=== PATIENT | male | born 1955 | race African-American/Black ===

== ENCOUNTER 2016-09-18 06:17 | Emergency (ER) | payer SELFPAY ==
[~2016-09-18] VITALS: Ht 182.9 cm; Wt 75.6 kg
[2016-09-18 06:27] VITALS: BP 134/83
[2016-09-18] MEDS ORDERED: PLEASE ENTER ALLERGIES MC SCH ×2 (08:00)
[2016-09-18] MEDS ORDERED: KETOROLAC 30 MG/1 ML IM ONE (08:00)
[2016-09-18] MEDS ORDERED: ONDANSETRON ODT 4 MG PO ONE (08:00)
[2016-09-18] MEDS ORDERED: DIAZEPAM 5 MG TABLET PO ONE (08:00)
[2016-09-18] MEDS ORDERED: KETOROLAC 30 MG/1 ML ONE (08:17)
[2016-09-18] MEDS ORDERED: ONDANSETRON ODT 4 MG ONE (08:17)
[2016-09-18] MEDS ORDERED: DIAZEPAM 5 MG TABLET ONE (08:17)
== END 2016-09-18 09:33 | disposition home or self-care (01) ==
LOC: EDBD 06:17 → ED 09:27
DX: S16.1XXA Strain of muscle, fascia and tendon at neck level, initial encounter (principal); R51 Headache; M54.5 Low back pain; V89.2XXA Person injured in unspecified motor-vehicle accident, traffic, initial encounter; Y93.89 Activity, other specified; Y92.488 Other paved roadways as the place of occurrence of the external cause; Y99.8 Other external cause status
CPT/HCPCS: 72050; 96372; 99284; J1885; Q0162

== ENCOUNTER 2018-09-20 14:41 | Inpatient (IN) | payer MEDICAID, OTHER ==
[~2018-09-20] VITALS: Ht 175.3 cm; Wt 70.8 kg
--- NOTE | 2018-09-20 14:45 | NUR ---
PT ARRIVED TO ROOM 2 VIA GURNEY FROM [facility] FOR N/V/D FOR APPROX. 1 WEEK. FRIENDS/FAMILY ATTEMPTED TO TREAT WITH HOME REMEDIES. PT AAO X 4, REQUESTING WATER. PT'S MUCOUS MEMBRANES VERY DRY, AWARE. VSS, HR TACHY, NEW ORDERS RECEIVED.
[2018-09-20] MEDS ORDERED: SODIUM CHLORIDE FLUSH 10ML SYR IVF ONE (15:00)
[2018-09-20] MEDS ORDERED: SODIUM CHLORIDE 0.9% 1,000ML IVBOLUS ONE (15:00)
--- NOTE | 2018-09-20 15:02 | NUR ---
IV BOLUS INFUSING, BC X 2 DRAWN.
[2018-09-20 15:23] LABS: MEAN CORPUSCULAR HEMOGLOBIN 28.7 pg (27.5-34.5); MEAN CORPUSCULAR HGB CONC 32.4 g/dL (33.2-36.2); MEAN CORPUSCULAR VOLUME 88.3 fL (81-97); MEAN PLATELET VOLUME 8.3 fL (7.4-10.4); PLATELET COUNT 479 x10^3/uL (130-400); RED BLOOD COUNT 4.75 x10^6/uL (4.38-5.82); RED CELL DISTRIBUTION WIDTH 15.4 % (9.4-14.8)
[2018-09-20 15:34] LABS: ALANINE AMINOTRANSFERASE 66 U/L (12-78); ALBUMIN 1.6 g/dL (3.4-5.0); ANION GAP 11 mmol/L (5-15); CALCIUM 8.8 mg/dL (8.5-10.1); CHLORIDE 98 mmol/L (98-107); CREATININE 3.04 mg/dL (0.7-1.3)
[2018-09-20 15:47] LABS: ALKALINE PHOSPHATASE 189 U/L (45-117); BILIRUBIN,TOTAL 4.5 mg/dL (0.2-1.0); CREATINE KINASE, TOTAL 87 U/L (39-308); TOTAL PROTEIN 7.9 g/dL (6.4-8.2)
[2018-09-20 16:00] LABS: MD YES
[2018-09-20 16:02] LABS: BAND#(MANUAL) 1.62 x10^3/uL; BANDS%(MANUAL) 7 % (0-7)
[2018-09-20 16:03] LABS: <PLATELET ESTIMATE> INCREASED; <PLT MORPHOLOGY> NORMAL PLT MORPH; <RBC MORPHOLOGY> NORMAL; LYMPH#(MANUAL) 0.23 x10^3/uL (1-3.4); LYMPHS% (MANUAL) 1 % (22-44); MONOS#(MANUAL) 0.23 x10^3/uL (0.3-2.7); MONOS% (MANUAL) 1 % (2-9); SEGS% (MANUAL) 91 % (42-75)
[2018-09-20 16:04] LABS: PMNS WITH VACUOLES 1+; TOXIC GRAN 1+
[2018-09-20] MEDS ORDERED: SODIUM CHLORIDE 0.9%, 500ML IVBOLUS ONE (16:30)
[2018-09-20] MEDS ORDERED: CEFTRIAXONE PMX 1GM/50ML 50 ML IV ONE (16:30)
[2018-09-20] MEDS ORDERED: AZITHROMYCIN 500 MG in SODIUM CHLORIDE 0.9% 250 ML IV ONE (16:30)
[2018-09-20 16:59] LABS: MICROSCOPIC INDICATED
[2018-09-20] MEDS ORDERED: CEFTRIAXONE PMX 1GM/50ML 50 ML ONE (16:59)
[2018-09-20 17:02] LABS: CULTURE INDICATED? NO
--- NOTE | 2018-09-20 17:11 | NUR ---
NOTIFIED THAT PT MEETS SEPSIS CRITERIA. 2L NS BOLUS COMPLETED. BC X 2 COMPLETED. PT RECEIVING ABX.
[2018-09-20] MEDS ORDERED: OXYcodone IR 5MG TABLET PO PRN (18:00)
[2018-09-20] MEDS ORDERED: ACETAMINOPHEN 325 MG TABLET PO PRN (18:00)
[2018-09-20] MEDS ORDERED: morphine SULFATE 10 MG/ML, 1ML IVPush PRN (18:00)
[2018-09-20] MEDS ORDERED: hydrALAzine 20 MG/ML, 1ML IVPush PRN (18:00)
[2018-09-20] MEDS ORDERED: GABAPENTIN 300 MG CAPSULE PO PRN (18:00)
[2018-09-20] MEDS ORDERED: ONDANSETRON 2MG/ML, 2ML IVPush PRN (18:00)
--- NOTE | 2018-09-20 18:03 | NUR ---
report given to BENITO Baron. pt to transfer to room 410.
[2018-09-20 19:00] VITALS: BP 140/71
[2018-09-20] MEDS: D5%-0.45% NACL 1,000 ML IV SCH (19:46)
[2018-09-20] MEDS: NICOTINE 14MG/24 HR PATCH.TD24 TD SCH (19:47)
[2018-09-20] MEDS: HEPARIN 5,000 UNITS/ML, 1ML SQ SCH (19:47)
[2018-09-20 21:22] LABS: ANION GAP 10 mmol/L (5-15); CALCIUM 7.9 mg/dL (8.5-10.1); CHLORIDE 105 mmol/L (98-107); CREATININE 2.34 mg/dL (0.7-1.3)
[2018-09-21] MEDS ORDERED: LACTATED RINGERS 500 ML IVBOLUS ONE (02:00)
[2018-09-21 02:33] VITALS: BP 121/75
[2018-09-21] MEDS: AMPICILLIN 1 GM in SODIUM CHLORIDE 0.9% 100 ML IV SCH ×3 (02:54→14:24)
[2018-09-21] MEDS: HEPARIN 5,000 UNITS/ML, 1ML SQ SCH ×3 (02:55→19:52)
[2018-09-21] MEDS: D5%-0.45% NACL 1,000 ML IV SCH ×2 (02:56→15:23)
[2018-09-21 06:23] LABS: MEAN CORPUSCULAR HEMOGLOBIN 29.8 pg (27.5-34.5); MEAN CORPUSCULAR HGB CONC 33.3 g/dL (33.2-36.2); MEAN CORPUSCULAR VOLUME 89.3 fL (81-97); MEAN PLATELET VOLUME 8.1 fL (7.4-10.4); PLATELET COUNT 433 x10^3/uL (130-400); RED BLOOD COUNT 4.02 x10^6/uL (4.38-5.82); RED CELL DISTRIBUTION WIDTH 15.4 % (9.4-14.8)
[2018-09-21 06:26] LABS: CALCIUM 7.8 mg/dL (8.5-10.1); CHLORIDE 109 mmol/L (98-107)
[2018-09-21 06:31] LABS: ALANINE AMINOTRANSFERASE 57 U/L (12-78); ALBUMIN 1.2 g/dL (3.4-5.0); ALKALINE PHOSPHATASE 161 U/L (45-117); ANION GAP 9 mmol/L (5-15); BILIRUBIN,TOTAL 2.7 mg/dL (0.2-1.0); CREATININE 1.88 mg/dL (0.7-1.3); TOTAL PROTEIN 6.2 g/dL (6.4-8.2)
[2018-09-21 06:45] LABS: BASOPHILS % (AUTO) 0 % (0-1); EOSINOPHILS % (AUTO) 0 % (1-7); LYMPHOCYTES # (AUTO) 0.42 x10^3/uL (1-3.4); LYMPHOCYTES % (AUTO) 2 % (22-44); MD SCAN; MONOCYTES # (AUTO) 0.07 x10^3/uL (0.2-0.8); MONOCYTES % (AUTO) 0 % (2-9); NEUTROPHILS # (AUTO) 19.39 x10^3/uL (1.8-6.8); NEUTROPHILS % (AUTO) 98 % (42-75)
[2018-09-21 08:19] VITALS: BP 106/54
[2018-09-21 12:49] VITALS: BP 108/65
[2018-09-21] MEDS ORDERED: CEFTAROLINE 600 MG in SODIUM CHLORIDE 0.9% 100 ML IV SCH ×2 (16:00→16:30)
[2018-09-21] MEDS ORDERED: PHARMACY MAY ADJ FOR RENAL FX MC PRN (16:00)
[2018-09-21 16:20] LABS: ANION GAP 9 mmol/L (5-15); CALCIUM 7.9 mg/dL (8.5-10.1); CHLORIDE 109 mmol/L (98-107); CREATININE 1.54 mg/dL (0.7-1.3)
[2018-09-21] MEDS ORDERED: AZITHROMYCIN 500 MG in SODIUM CHLORIDE 0.9% 250 ML IV SCH (17:00)
[2018-09-21] MEDS ORDERED: CEFTRIAXONE PMX 1GM/50ML 50 ML IV SCH (17:00)
[2018-09-21 19:10] VITALS: BP 143/65
[2018-09-21] MEDS: NICOTINE 14MG/24 HR PATCH.TD24 TD SCH (19:51)
[2018-09-22 00:59] VITALS: BP 140/80
[2018-09-22] MEDS: D5%-0.45% NACL 1,000 ML IV SCH (02:12)
[2018-09-22] MEDS: HEPARIN 5,000 UNITS/ML, 1ML SQ SCH ×2 (04:15→17:30)
[2018-09-22] MEDS: CEFTAROLINE 400 MG in SODIUM CHLORIDE 0.9% 100 ML IV SCH ×2 (04:15→17:30)
[2018-09-22 05:26] LABS: MEAN CORPUSCULAR HEMOGLOBIN 29.2 pg (27.5-34.5); MEAN CORPUSCULAR HGB CONC 32.3 g/dL (33.2-36.2); MEAN CORPUSCULAR VOLUME 90.5 fL (81-97); MEAN PLATELET VOLUME 7.6 fL (7.4-10.4); PLATELET COUNT 433 x10^3/uL (130-400); RED BLOOD COUNT 3.95 x10^6/uL (4.38-5.82); RED CELL DISTRIBUTION WIDTH 15.7 % (9.4-14.8)
[2018-09-22 05:33] LABS: ANION GAP 6 mmol/L (5-15); CALCIUM 7.9 mg/dL (8.5-10.1); CHLORIDE 107 mmol/L (98-107)
[2018-09-22 05:35] LABS: CREATININE 1.42 mg/dL (0.7-1.3)
[2018-09-22 06:06] LABS: MD SCAN
[2018-09-22 06:07] LABS: BASOPHILS # (AUTO) 0.03 x10^3/uL (0-0.1); BASOPHILS % (AUTO) 0 % (0-1); EOSINOPHILS # (AUTO) 0.11 x10^3/uL (0-0.4); EOSINOPHILS % (AUTO) 1 % (1-7); LYMPHOCYTES # (AUTO) 0.74 x10^3/uL (1-3.4); LYMPHOCYTES % (AUTO) 4 % (22-44); MONOCYTES # (AUTO) 0.06 x10^3/uL (0.2-0.8); MONOCYTES % (AUTO) 0 % (2-9); NEUTROPHILS % (AUTO) 95 % (42-75)
[2018-09-22 07:42] VITALS: BP 132/76
[2018-09-22] MEDS: SODIUM CHLORIDE 0.9% 1,000 ML IV SCH ×3 (08:31→23:39)
[2018-09-22 12:30] VITALS: BP 133/80
[2018-09-22 19:50] VITALS: BP 128/75
[2018-09-22] MEDS: NICOTINE 14MG/24 HR PATCH.TD24 TD SCH (21:35)
[2018-09-23 02:30] VITALS: BP 129/82
[2018-09-23] MEDS: HEPARIN 5,000 UNITS/ML, 1ML SQ SCH ×2 (05:29→17:52)
[2018-09-23] MEDS: CEFTAROLINE 400 MG in SODIUM CHLORIDE 0.9% 100 ML IV SCH (05:29)
[2018-09-23 06:10] LABS: BASOPHILS % (AUTO) 0 % (0-1); EOSINOPHILS % (AUTO) 1 % (1-7); LYMPHOCYTES # (AUTO) 0.96 x10^3/uL (1-3.4); LYMPHOCYTES % (AUTO) 6 % (22-44); MD NO; MEAN CORPUSCULAR HEMOGLOBIN 29.4 pg (27.5-34.5); MEAN CORPUSCULAR HGB CONC 32.6 g/dL (33.2-36.2); MEAN CORPUSCULAR VOLUME 90.2 fL (81-97); MEAN PLATELET VOLUME 7.1 fL (7.4-10.4); MONOCYTES # (AUTO) 0.21 x10^3/uL (0.2-0.8); MONOCYTES % (AUTO) 1 % (2-9); NEUTROPHILS # (AUTO) 14.68 x10^3/uL (1.8-6.8); NEUTROPHILS % (AUTO) 92 % (42-75); PLATELET COUNT 406 x10^3/uL (130-400); RED BLOOD COUNT 4.01 x10^6/uL (4.38-5.82); RED CELL DISTRIBUTION WIDTH 15.7 % (9.4-14.8)
[2018-09-23 06:24] LABS: ANION GAP 7 mmol/L (5-15); CALCIUM 7.9 mg/dL (8.5-10.1); CHLORIDE 111 mmol/L (98-107); CREATININE 1.05 mg/dL (0.7-1.3)
[2018-09-23] MEDS: SODIUM CHLORIDE 0.9% 1,000 ML IV SCH (06:32)
[2018-09-23 08:30] VITALS: BP 142/79
[2018-09-23 11:57] VITALS: BP 129/73
[2018-09-23] MEDS: CEFTRIAXONE PMX 2GM/50ML 50 ML IV SCH (13:23)
[2018-09-23 14:45] VITALS: BP 147/89
[2018-09-23 19:43] VITALS: BP 135/85
[2018-09-23] MEDS: NICOTINE 14MG/24 HR PATCH.TD24 TD SCH (19:56)
[2018-09-24 00:31] VITALS: BP 146/85
[2018-09-24 05:49] LABS: CALCIUM 8.2 mg/dL (8.5-10.1); CHLORIDE 110 mmol/L (98-107)
[2018-09-24 05:52] LABS: ANION GAP 5 mmol/L (5-15); BASOPHILS % (AUTO) 0 % (0-1); CREATININE 1.03 mg/dL (0.7-1.3); EOSINOPHILS % (AUTO) 1 % (1-7); LYMPHOCYTES % (AUTO) 5 % (22-44); MD NO; MEAN CORPUSCULAR HGB CONC 32.8 g/dL (33.2-36.2); MEAN CORPUSCULAR VOLUME 88.4 fL (81-97); MEAN PLATELET VOLUME 6.8 fL (7.4-10.4); MONOCYTES # (AUTO) 0.36 x10^3/uL (0.2-0.8); MONOCYTES % (AUTO) 3 % (2-9); NEUTROPHILS # (AUTO) 13.29 x10^3/uL (1.8-6.8); NEUTROPHILS % (AUTO) 92 % (42-75); PLATELET COUNT 381 x10^3/uL (130-400); RED BLOOD COUNT 3.99 x10^6/uL (4.38-5.82); RED CELL DISTRIBUTION WIDTH 14.9 % (9.4-14.8)
[2018-09-24] MEDS: HEPARIN 5,000 UNITS/ML, 1ML SQ SCH (05:54)
[2018-09-24] MEDS: SODIUM CHLORIDE 0.9% 1,000 ML IV SCH ×2 (07:50→19:51)
[2018-09-24 07:57] VITALS: BP 134/82
[2018-09-24] MEDS: CEFTRIAXONE PMX 2GM/50ML 50 ML IV SCH (12:20)
[2018-09-24] MEDS: ENOXAPARIN 40 MG/0.4 ML SQ SCH (12:21)
[2018-09-24 13:15] VITALS: BP 144/89
[2018-09-24] MEDS: NICOTINE 14MG/24 HR PATCH.TD24 TD SCH (19:51)
[2018-09-24 20:12] VITALS: BP 135/83
[2018-09-25 01:23] VITALS: BP 132/65
[2018-09-25] MEDS: SODIUM CHLORIDE 0.9% 1,000 ML IV SCH ×3 (03:35→22:58)
[2018-09-25 05:23] LABS: BASOPHILS % (AUTO) 0 % (0-1); EOSINOPHILS # (AUTO) 0.13 x10^3/uL (0-0.4); EOSINOPHILS % (AUTO) 1 % (1-7); LYMPHOCYTES # (AUTO) 1.01 x10^3/uL (1-3.4); LYMPHOCYTES % (AUTO) 7 % (22-44); MD NO; MEAN CORPUSCULAR HEMOGLOBIN 29.4 pg (27.5-34.5); MEAN CORPUSCULAR HGB CONC 32.6 g/dL (33.2-36.2); MEAN CORPUSCULAR VOLUME 90.4 fL (81-97); MEAN PLATELET VOLUME 6.5 fL (7.4-10.4); MONOCYTES % (AUTO) 5 % (2-9); NEUTROPHILS # (AUTO) 12.61 x10^3/uL (1.8-6.8); NEUTROPHILS % (AUTO) 87 % (42-75); PLATELET COUNT 376 x10^3/uL (130-400); RED BLOOD COUNT 3.86 x10^6/uL (4.38-5.82); RED CELL DISTRIBUTION WIDTH 14.9 % (9.4-14.8)
[2018-09-25 05:37] LABS: ANION GAP 6 mmol/L (5-15); CALCIUM 8.1 mg/dL (8.5-10.1); CHLORIDE 112 mmol/L (98-107)
[2018-09-25 05:40] LABS: CREATININE 0.79 mg/dL (0.7-1.3)
[2018-09-25 06:40] VITALS: BP 147/83
[2018-09-25 11:11] LABS: ALBUMIN 1.4 g/dL (3.4-5.0); BILIRUBIN, DIRECT 0.5 mg/dL (0.1-0.2)
[2018-09-25 11:13] LABS: BILIRUBIN,INDIRECT 0.3 mg/dL (0.0-2.0); BILIRUBIN,TOTAL 0.8 mg/dL (0.2-1.0); TOTAL PROTEIN 6.3 g/dL (6.4-8.2)
[2018-09-25] MEDS: ENOXAPARIN 40 MG/0.4 ML SQ SCH (12:42)
[2018-09-25] MEDS: CEFTRIAXONE PMX 2GM/50ML 50 ML IV SCH (12:42)
[2018-09-25] MEDS ORDERED: OMNIPAQUE 350 MG/ML, 100ML BOTTLE ONE (15:35)
[2018-09-25 16:17] VITALS: BP 143/90
[2018-09-25] MEDS: NICOTINE 14MG/24 HR PATCH.TD24 TD SCH (17:31)
[2018-09-25 19:27] VITALS: BP 150/89
[2018-09-26 00:48] VITALS: BP 149/89
[2018-09-26 04:39] LABS: BASOPHILS # (AUTO) 0.03 x10^3/uL (0-0.1); BASOPHILS % (AUTO) 0 % (0-1); EOSINOPHILS # (AUTO) 0.17 x10^3/uL (0-0.4); EOSINOPHILS % (AUTO) 1 % (1-7); LYMPHOCYTES # (AUTO) 1.34 x10^3/uL (1-3.4); LYMPHOCYTES % (AUTO) 10 % (22-44); MD NO; MEAN CORPUSCULAR HEMOGLOBIN 28.5 pg (27.5-34.5); MEAN CORPUSCULAR HGB CONC 32.2 g/dL (33.2-36.2); MEAN CORPUSCULAR VOLUME 88.6 fL (81-97); MEAN PLATELET VOLUME 6.3 fL (7.4-10.4); MONOCYTES # (AUTO) 0.76 x10^3/uL (0.2-0.8); MONOCYTES % (AUTO) 6 % (2-9); NEUTROPHILS # (AUTO) 11.41 x10^3/uL (1.8-6.8); NEUTROPHILS % (AUTO) 83 % (42-75); PLATELET COUNT 375 x10^3/uL (130-400); RED BLOOD COUNT 3.96 x10^6/uL (4.38-5.82); RED CELL DISTRIBUTION WIDTH 15.4 % (9.4-14.8)
[2018-09-26 04:49] LABS: ANION GAP 6 mmol/L (5-15); CALCIUM 8.1 mg/dL (8.5-10.1); CHLORIDE 114 mmol/L (98-107); CREATININE 0.88 mg/dL (0.7-1.3)
[2018-09-26 07:29] VITALS: BP 153/91
[2018-09-26] MEDS: SODIUM CHLORIDE 0.9% 1,000 ML IV SCH ×2 (08:15→17:45)
[2018-09-26] MEDS: CEFTRIAXONE PMX 2GM/50ML 50 ML IV SCH (12:53)
[2018-09-26] MEDS: ENOXAPARIN 40 MG/0.4 ML SQ SCH (12:54)
[2018-09-26 12:57] VITALS: BP 142/85
[2018-09-26] MEDS: NICOTINE 14MG/24 HR PATCH.TD24 TD SCH (17:45)
[2018-09-26 19:27] VITALS: BP 149/92
[2018-09-27] MEDS: SODIUM CHLORIDE 0.9% 1,000 ML IV SCH (01:56)
[2018-09-27 02:07] VITALS: BP 138/87
[2018-09-27 06:06] LABS: BASOPHILS # (AUTO) 0.03 x10^3/uL (0-0.1); BASOPHILS % (AUTO) 0 % (0-1); EOSINOPHILS # (AUTO) 0.14 x10^3/uL (0-0.4); EOSINOPHILS % (AUTO) 1 % (1-7); LYMPHOCYTES # (AUTO) 1.75 x10^3/uL (1-3.4); LYMPHOCYTES % (AUTO) 15 % (22-44); MD NO; MEAN CORPUSCULAR HEMOGLOBIN 28.9 pg (27.5-34.5); MEAN CORPUSCULAR HGB CONC 32.4 g/dL (33.2-36.2); MEAN CORPUSCULAR VOLUME 89.2 fL (81-97); MEAN PLATELET VOLUME 6.7 fL (7.4-10.4); MONOCYTES # (AUTO) 0.81 x10^3/uL (0.2-0.8); MONOCYTES % (AUTO) 7 % (2-9); NEUTROPHILS # (AUTO) 8.88 x10^3/uL (1.8-6.8); NEUTROPHILS % (AUTO) 76 % (42-75); PLATELET COUNT 394 x10^3/uL (130-400); RED BLOOD COUNT 3.79 x10^6/uL (4.38-5.82)
[2018-09-27 07:18] VITALS: BP 135/88
[2018-09-27] MEDS: CEFTRIAXONE PMX 2GM/50ML 50 ML IV SCH (12:55)
[2018-09-27] MEDS: ENOXAPARIN 40 MG/0.4 ML SQ SCH (12:55)
[2018-09-27 14:44] VITALS: BP 147/85
[2018-09-27 19:13] VITALS: BP 134/84
[2018-09-28 01:26] VITALS: BP 149/88
[2018-09-28 05:17] LABS: BASOPHILS # (AUTO) 0.04 x10^3/uL (0-0.1); BASOPHILS % (AUTO) 0 % (0-1); EOSINOPHILS # (AUTO) 0.16 x10^3/uL (0-0.4); EOSINOPHILS % (AUTO) 2 % (1-7); LYMPHOCYTES % (AUTO) 17 % (22-44); MD NO; MEAN CORPUSCULAR HEMOGLOBIN 28.7 pg (27.5-34.5); MEAN CORPUSCULAR HGB CONC 32.2 g/dL (33.2-36.2); MEAN CORPUSCULAR VOLUME 89.2 fL (81-97); MEAN PLATELET VOLUME 6.4 fL (7.4-10.4); MONOCYTES # (AUTO) 0.81 x10^3/uL (0.2-0.8); MONOCYTES % (AUTO) 7 % (2-9); NEUTROPHILS # (AUTO) 8.07 x10^3/uL (1.8-6.8); NEUTROPHILS % (AUTO) 74 % (42-75); PLATELET COUNT 396 x10^3/uL (130-400); RED BLOOD COUNT 3.93 x10^6/uL (4.38-5.82); RED CELL DISTRIBUTION WIDTH 15.6 % (9.4-14.8)
[2018-09-28 05:21] LABS: ALANINE AMINOTRANSFERASE 50 U/L (12-78); ALBUMIN 1.7 g/dL (3.4-5.0); ANION GAP 4 mmol/L (5-15); CALCIUM 8.3 mg/dL (8.5-10.1); CHLORIDE 113 mmol/L (98-107); CREATININE 0.83 mg/dL (0.7-1.3)
[2018-09-28 05:23] LABS: ALKALINE PHOSPHATASE 162 U/L (45-117); BILIRUBIN,TOTAL 0.6 mg/dL (0.2-1.0); TOTAL PROTEIN 6.6 g/dL (6.4-8.2)
[2018-09-28 08:07] VITALS: BP 162/93
[2018-09-28 10:21] LABS: HCT (SEDRATE) 35.7 % (39.2-51.8)
[2018-09-28 13:36] VITALS: BP 148/92
== END 2018-09-28 14:40 | DRG 871 ==
LOC: ED 16:25 → EDIP 16:26 → ED 16:50 → 4WST 18:47
PROVIDERS: ADMIT Internal Medicine; ATTEND Internal Medicine
PROC: 02HV33Z Insertion of Infusion Device into Superior Vena Cava, Percutaneous Approach (ICD-10-PCS; principal; 2018-09-28)
PROC: B5181ZA Fluoroscopy of Superior Vena Cava using Low Osmolar Contrast, Guidance (ICD-10-PCS; 2018-09-28)
PROC: B548ZZA Ultrasonography of Superior Vena Cava, Guidance (ICD-10-PCS; 2018-09-28)
DX: A40.3 Sepsis due to Streptococcus pneumoniae (principal); E43 Unspecified severe protein-calorie malnutrition; G92 Toxic encephalopathy; J13 Pneumonia due to Streptococcus pneumoniae; J96.01 Acute respiratory failure with hypoxia; N17.0 Acute kidney failure with tubular necrosis; E87.1 Hypo-osmolality and hyponatremia; B96.89 Other specified bacterial agents as the cause of diseases classified elsewhere; D64.9 Anemia, unspecified; D69.6 Thrombocytopenia, unspecified; Z68.23 Body mass index [BMI] 23.0-23.9, adult; E86.0 Dehydration; F17.200 Nicotine dependence, unspecified, uncomplicated
CPT/HCPCS: 36415; 36573; 71045; 71275; 76700; 80048; 80053; 80076; 81001; 82550; 83605; 84100; 84145; 84443; 85025; 85651; 86140; 87040; 87077; 87181; 93005; 93306; 96365; 96368; G0378; J0290; J0456; J0696; J0712; J1644; J1650; J7120; Q9967; C1751; J7030; J7040; J7050

== ENCOUNTER 2019-02-15 16:46 | Inpatient (IN) | payer MEDICAID, OTHER ==
[~2019-02-15] VITALS: Ht 180.3 cm; Wt 65.6 kg
--- NOTE | 2019-02-15 16:57 | NUR ---
PT BIB EMS FOR CHEST PAIN W RADIATING PAIN TO LEFT ARM. RESOLVED ONCE IN AMBULANCE ONLY LASTING APPROX 3O MIN FROM ONSENT. NO MEDS IN ROUTE. PT DENIES CP OR SOB AT THIS TIME. PATTERN DRAFTER APPLIED. EKG DONE. VS STABLE AT THIS TIME. HX OF PNUEMONIA AND SEPSIS. NOT IN DISTRESS. RESPIRATIONS EVEN AND UNLABORED. ANSWERING ALL QUESTIONS APPROPIATLY.
[2019-02-15] MEDS ORDERED: ASPIRIN 81 MG TABLET CHEW PO ONE (18:00)
[2019-02-15] MEDS ORDERED: ASPIRIN 81 MG TABLET CHEW ONE (18:03)
[2019-02-15 18:17] LABS: BASOPHILS # (AUTO) 0.03 x10^3/uL (0-0.1); BASOPHILS % (AUTO) 0 % (0-1); EOSINOPHILS # (AUTO) 0.04 x10^3/uL (0-0.4); EOSINOPHILS % (AUTO) 0 % (1-7); LYMPHOCYTES # (AUTO) 2.19 x10^3/uL (1-3.4); LYMPHOCYTES % (AUTO) 24 % (22-44); MD NO; MEAN CORPUSCULAR HEMOGLOBIN 28.9 pg (27.5-34.5); MEAN CORPUSCULAR HGB CONC 32.2 g/dL (33.2-36.2); MEAN CORPUSCULAR VOLUME 89.7 fL (81-97); MEAN PLATELET VOLUME 7.7 fL (7.4-10.4); MONOCYTES % (AUTO) 7 % (2-9); NEUTROPHILS # (AUTO) 6.11 x10^3/uL (1.8-6.8); NEUTROPHILS % (AUTO) 68 % (42-75); PLATELET COUNT 245 x10^3/uL (130-400)
[2019-02-15 18:20] LABS: ALBUMIN 3.7 g/dL (3.4-5.0); ANION GAP 4 mmol/L (5-15); CALCIUM 8.8 mg/dL (8.5-10.1); CHLORIDE 108 mmol/L (98-107); CREATININE 1.13 mg/dL (0.7-1.3)
[2019-02-15 18:24] LABS: TROPONIN I < 0.015 ng/mL (0.000-0.045)
--- NOTE | 2019-02-15 19:18 | NUR ---
PT DENIES ANY CHEST PAIN OR SOB. MD AT BEDSIDE
--- NOTE | 2019-02-15 19:36 | NUR ---
PT GIVEN SANDWHICH AND WATER
[2019-02-15] MEDS ORDERED: POLYETHYLENE GLYCOL 17 GM PACKET PO PRN (20:30)
[2019-02-15] MEDS ORDERED: morphine SULFATE 10 MG/ML, 1ML IVPush PRN (20:30)
[2019-02-15] MEDS ORDERED: ACETAMINOPHEN 325 MG TABLET PO PRN (20:30)
[2019-02-15] MEDS ORDERED: ONDANSETRON ODT 4 MG PO PRN (20:30)
[2019-02-15] MEDS ORDERED: NITROGLYCERIN 0.4 MG BOTTLE (25 TABS) SL PRN (20:30)
[2019-02-15] MEDS ORDERED: BISACODYL 10 MG SUPP PR PRN (20:30)
[2019-02-15] MEDS ORDERED: OMNIPAQUE 350 MG/ML, 75ML BOTTLE ONE (20:46)
--- NOTE | 2019-02-15 21:11 | NUR ---
REPORT GIVEN TO EVA OLIVER
[2019-02-15] MEDS: HEPARIN 5,000 UNITS/ML, 1ML SQ SCH (22:12)
[2019-02-15] MEDS: SODIUM CHLORIDE FLUSH 10ML SYR IVF SCH (22:13)
[2019-02-15 22:16] VITALS: BP 151/91
[2019-02-16 01:24] LABS: TROPONIN I < 0.015 ng/mL (0.000-0.045)
[2019-02-16 01:41] VITALS: BP 133/86
[2019-02-16] MEDS ORDERED: ASPIRIN 325 MG TABLET EC PO SCH (06:00)
[2019-02-16 06:47] LABS: BASOPHILS # (AUTO) 0.01 x10^3/uL (0-0.1); BASOPHILS % (AUTO) 0 % (0-1); EOSINOPHILS # (AUTO) 0.13 x10^3/uL (0-0.4); EOSINOPHILS % (AUTO) 2 % (1-7); LYMPHOCYTES # (AUTO) 2.14 x10^3/uL (1-3.4); LYMPHOCYTES % (AUTO) 35 % (22-44); MD NO; MEAN CORPUSCULAR HEMOGLOBIN 29.1 pg (27.5-34.5); MEAN CORPUSCULAR HGB CONC 32.5 g/dL (33.2-36.2); MEAN CORPUSCULAR VOLUME 89.6 fL (81-97); MEAN PLATELET VOLUME 7.5 fL (7.4-10.4); MONOCYTES # (AUTO) 0.56 x10^3/uL (0.2-0.8); MONOCYTES % (AUTO) 9 % (2-9); NEUTROPHILS # (AUTO) 3.31 x10^3/uL (1.8-6.8); NEUTROPHILS % (AUTO) 54 % (42-75); PLATELET COUNT 233 x10^3/uL (130-400); RED BLOOD COUNT 5.34 x10^6/uL (4.38-5.82); RED CELL DISTRIBUTION WIDTH 13.7 % (9.4-14.8)
[2019-02-16 06:58] LABS: ALBUMIN 3.1 g/dL (3.4-5.0); ANION GAP 5 mmol/L (5-15); CALCIUM 8.7 mg/dL (8.5-10.1); CHLORIDE 112 mmol/L (98-107)
[2019-02-16 07:03] LABS: ALANINE AMINOTRANSFERASE 24 U/L (12-78); ALKALINE PHOSPHATASE 96 U/L (45-117); BILIRUBIN,TOTAL 0.4 mg/dL (0.2-1.0); CHOL/HDL RATIO 2.5; CHOLESTEROL, TOTAL 140 mg/dL (140-239); CREATININE 0.95 mg/dL (0.7-1.3); HDL CHOL % 41 % (26-37); HDL CHOLESTEROL (DIRECT) 57 mg/dL (40-60); LDL CHOLESTEROL,CALCULATED 65 mg/dL (54-169); LDL/HDL RATIO 1.1 (0.5-3.0); TOTAL PROTEIN 6.8 g/dL (6.4-8.2); TRIGLYCERIDES 89 mg/dL (50-200); TROPONIN I < 0.015 ng/mL (0.000-0.045); VLDL CHOLESTEROL 18 mg/dL (0-25)
[2019-02-16 07:27] VITALS: BP 127/84
[2019-02-16] MEDS ORDERED: SENNA/DOCUSATE TABLET PO SCH (09:00)
[2019-02-16 14:14] VITALS: BP 135/85
[2019-02-16] MEDS: HEPARIN 5,000 UNITS/ML, 1ML SQ SCH ×2 (15:00→17:00)
[2019-02-16] MEDS: SODIUM CHLORIDE FLUSH 10ML SYR IVF SCH (15:29)
[2019-02-16] MEDS ORDERED: FLU VACC QS2019-20 36MOS UP/PF 0.5 ML IM-VACC ONE (17:00)
== END 2019-02-16 18:40 | disposition home or self-care (01) | DRG 313 ==
LOC: ED 19:39 → EDIP 20:50 → 5SO 21:19
PROVIDERS: ADMIT Internal Medicine; ATTEND Family Medicine
DX: R07.89 Other chest pain (principal); F12.90 Cannabis use, unspecified, uncomplicated; F17.210 Nicotine dependence, cigarettes, uncomplicated; Z87.01 Personal history of pneumonia (recurrent); Z56.0 Unemployment, unspecified; Z72.89 Other problems related to lifestyle; Z82.49 Family history of ischemic heart disease and other diseases of the circulatory system
CPT/HCPCS: 36415; 71045; 71260; 78452; 80048; 80053; 80061; 82040; 84443; 84484; 85025; 93005; 93017; 99285; G0378; J1644; Q9967; A9502